=== PATIENT | female | born 1960 | race Caucasian/White ===

== ENCOUNTER 2023-12-21 08:18 | Day surgery (SDC) | payer BC ==
[~2023-12-21] VITALS: Ht 162.6 cm; Wt 104.0 kg
[~2023-12-21 08:18] MED LIST: ACETAMINOPHEN 500 MG TABLET PO ONE; CELECOXIB 100 MG CAPSULE PO ONE; GABAPENTIN 300 MG CAPSULE PO ONE; SCOPOLAMINE HYDROBROMIDE 1 MG PATCH .72 H (TRANSDERM-SCOP) TD ONE; oxyCODONE HCL 10 MG TAB.ER.12H PO ONE
[2023-12-21] MEDS ORDERED: CELECOXIB 100 MG CAPSULE ONE (08:26)
[2023-12-21] MEDS ORDERED: ACETAMINOPHEN 500 MG TABLET ONE (08:26)
[2023-12-21] MEDS ORDERED: SCOPOLAMINE HYDROBROMIDE 1 MG PATCH .72 H (TRANSDERM-SCOP) TD ONE (08:26)
[2023-12-21] MEDS ORDERED: GABAPENTIN 300 MG CAPSULE ONE (08:27)
[2023-12-21] MEDS ORDERED: oxyCODONE HCL 10 MG TAB.ER.12H PO ONE (08:27)
[2023-12-21] MEDS ORDERED: CEFAZOLIN SOD 2 GM in D5W 50 ML IV ONE (08:45)
[2023-12-21] MEDS ORDERED: DEXAMETHASONE SOD PHOSPHATE 4 MG/ML VIAL ONE (09:20)
[2023-12-21] MEDS ORDERED: PROPOFOL DRIP 100 ML IV ONE (09:24)
[2023-12-21 10:44] VITALS: PULSE 70; RESP 18; TEMP 97.4; O2SAT 97
[2023-12-21] MEDS ORDERED: NALOXONE HCL 0.4 MG/ML AMP (NARCAN) IVP PRN (10:45)
[2023-12-21] MEDS ORDERED: ONDANSETRON HCL 4 MG/2 ML VIAL IVP PRN ×2 (10:45→11:45)
[2023-12-21] MEDS ORDERED: KETOROLAC TROMETHAMINE 30 MG VIAL IM PRN (10:45)
[2023-12-21] MEDS ORDERED: hydrALAZINE HCL 20 MG/ML VIAL IV PRN (10:45)
[2023-12-21] MEDS ORDERED: LORATADINE 10 MG TABLET PO PRN (11:00)
[2023-12-21] MEDS ORDERED: HYDROmorphone 1 MG/ML INJ. CARTRIDGE IVP PRN ×3 (11:00)
[2023-12-21] MEDS ORDERED: traMADol HCL HCL 50 MG TABLET (ULTRAM) PO PRN (11:00)
[2023-12-21] MEDS ORDERED: oxyCODONE HCL 5 MG TABLET PO PRN ×2 (11:00)
[2023-12-21 11:15] VITALS: BP_SYST 113
[2023-12-21] MEDS ORDERED: BISACODYL 10 MG/SUPPOSITORY RC PRN (11:30)
[2023-12-21] MEDS ORDERED: LACTULOSE 20 GM/30 ML UDC PO PRN (11:30)
[2023-12-21] MEDS ORDERED: METOCLOPRAMIDE HCL 10 MG/2 ML VIAL IVP PRN (11:30)
[2023-12-21] MEDS ORDERED: DIPHENHYDRAMINE HCL 25 MG CAPSULE PO PRN (11:30)
[2023-12-21] MEDS: HYDROmorphone 1 MG/ML INJ. CARTRIDGE IVP PRN ×2 (11:44→12:10)
[2023-12-21] MEDS ORDERED: HYDROmorphone 1 MG/ML INJ. CARTRIDGE ONE (11:44)
[2023-12-21] MEDS ORDERED: KETOROLAC TROMETHAMINE 10 MG TABLET (TORADOL) PO SCH (14:00)
[2023-12-21] MEDS ORDERED: ceFAZolin SODIUM 2 GM in D5W 50 ML IV SCH (14:00)
[2023-12-21] MEDS ORDERED: ACETAMINOPHEN 500 MG TABLET PO SCH (14:00)
[2023-12-21] MEDS ORDERED: TAMSULOSIN HCL 0.4 MG CAP PO ONE (16:45)
[2023-12-21] MEDS ORDERED: SENNOSIDES/DOCUSATE SODIUM 1 TAB TABLET(SENOKOT-S) PO SCH (21:00)
[2023-12-22] MEDS ORDERED: ASPIRIN 81 MG TAB.CHEW PO SCH (09:00)
[2023-12-22] MEDS ORDERED: CELECOXIB 200 MG CAPSULE PO SCH (11:00)
== END 2023-12-21 18:30 | disposition home or self-care (01) ==
LOC: SDS 08:18 → SMU 08:19 → SDS 18:30
PROVIDERS: ATTEND Student in an Organized Health Care Education/Training Program
DX: M17.11 Unilateral primary osteoarthritis, right knee (principal); M25.761 Osteophyte, right knee; M25.561 Pain in right knee; E03.9 Hypothyroidism, unspecified; K21.9 Gastro-esophageal reflux disease without esophagitis; E66.3 Overweight; Z68.39 Body mass index [BMI] 39.0-39.9, adult; Z90.710 Acquired absence of both cervix and uterus; Z90.89 Acquired absence of other organs; Z98.890 Other specified postprocedural states; Z88.1 Allergy status to other antibiotic agents; Z79.899 Other long term (current) drug therapy; Z82.49 Family history of ischemic heart disease and other diseases of the circulatory system; Z83.3 Family history of diabetes mellitus
CPT/HCPCS: 87081; 27447; 97162; 73560; 97530; 97110; 97116; 88305; 88311; 64447; J3490 ×3; J0690; J0696; J1100; J2704; J3370; J1170; J7060 ×2; J7120; C1776 ×3